=== PATIENT | female | born 1955 | race Two or more races ===

== ENCOUNTER 2024-08-09 05:24 | Day surgery (SDC) | payer OTHER ==
[2024-08-04 09:58] VITALS: BP 150/88
[~2024-08-09] VITALS: Ht 170.2 cm; Wt 86.2 kg
[~2024-08-09 05:24] MED LIST: AMLODIPINE-BEN1 EAC1 PO; CLONIDINE HCL0.1 M1 PO; ZOCOR40 MG PO
[2024-08-09] MEDS ORDERED: ONDANSETRON HCL 2 MG/ML VIAL IV ONE (08:30)
[2024-08-09] MEDS ORDERED: MORPHINE SULFATE 4 MG/ML VIAL IV ONE (08:40)
== END 2024-08-09 12:05 | disposition home or self-care (01) ==
LOC: CIR.AMB 05:24
PROVIDERS: ATTEND Obstetrics & Gynecology
DX: N84.0 Polyp of corpus uteri (principal); N95.0 Postmenopausal bleeding; Z88.6 Allergy status to analgesic agent; I10 Essential (primary) hypertension; E78.5 Hyperlipidemia, unspecified